=== PATIENT | male | born 1955 | race Caucasian/White ===

== ENCOUNTER 2019-09-10 20:46 | Day surgery (SDC) | payer SELFPAY ==
--- NOTE | ~2019-09-10 | XR_ITS ---
EXAMINATION: XR surgery orthopedic DATE: 09/11/2019 12:09 INDICATION: Right ankle fracture TECHNIQUE: 7 fluoroscopic spot images of the right ankle were obtained during procedure performed by Dr. Soliman. Radiologist was not present for the imaging or procedure. The amount of fluoroscopy t ryne used during this procedure was 2.9 minutes. COMPARISON: None. FINDINGS: Images demonstrate open reduction and internal fixation of the medial and lateral malleoli fractures at the right ankle. The lateral malleolar fractures fixed with an interfragmentary screw and lateral plate and screws. The medial malleolar fractures fixed with 2 cannulated lag screws with washers. Ali gnment post fixation appears near-anatomic. Alignment post fixation appears near-anatomic with a vidhi ruent ankle mortise. Joint spaces are relatively preserved. Expected small amount of gas in the soft tissues. Skin josh along the lateral side of the ankle. IMPRESSION: 1. Near-anatomic alignment post reduction and internal fixation of a right ankle bimalleolar fracture . Reviewed, dictated and finalized at location A. MOBILE LOCATOR IMPRESSION: 1. Near-anatomic alignment post reduction and internal fixation of a right ankl e bimalleolar fracture.
--- NOTE | ~2019-09-10 | XR_ITS ---
EXAMINATION: XR ankle RT min 3V INDICATION: Right ankle pain, initial encounter TECHNIQUE: Two views of the right ankle are obtained on three radiographs. COMPARISON: None available FINDINGS: There is an acute, traumatic, oblique fracture of the distal tibia which extends to the tib ial plafond. The talus and distal fracture fragment are laterally subluxed 2.8 cm with respect to the distal tibia. There is a transverse fracture of the medial malleolus. Soft tissue swelling surrounds the fractures. Dorsal and plantar calcaneal enthesophytes are noted. IMPRESSION: 1. Bimalleolar fracture dislocation of the ankle. Reviewed, dictated and finalized at location A. [employer]
--- NOTE | ~2019-09-10 | XR_ITS ---
EXAMINATION: XR ankle RT 2V INDICATION: Splinting and reduction of ankle fracture TECHNIQUE: Two views of the right ankle are obtained. COMPARISON: 2110 hours FINDINGS: The previously described ankle fractures have been nearly completely reduced. The lateral s ubluxation of the talus and distal fibular fracture fragment have been reduced to less than 1 cm. The re is also near complete reduction of the medial malleolar fracture. A splint has been applied. IMPRESSION: 1. Partially reduced and splinted bimalleolar ankle fracture. Reviewed, dictated and finalized at location A. [employer]
[2019-09-10 20:46] VITALS: BP 108/74; PULSE 74; RESP 20; TEMP 37.1; O2SAT 98
--- NOTE | 2019-09-10 20:59 | ED.FALL ---
HPI - Fall General Chief Complaint: Fall Stated Complaint: open r ankle fracture Time Seen by Provider: 09/10/19 20:59 Source: patient Mode of arrival: EMS Limitations: no limitations History of Present Illness HPI Narrative: A 63 y/o male presents to the ED, via EMS, with c/o right ankle pain. Pt states he was cooking dinner this evening when the smoke detector went off and he slipped and fell in the kitchen. Pt notes that he had a glass of bourbon before this occurred. Pt was unable to get up afterwards. Pt recently saw his PCP for a right knee strain. He denies a HI, neck pain, numbness/tingling, and being on a blood thinner. Fall from: standing Place fall occurred: home Location of injury - extremities: Right: ankle Related Data Home Medications Medication Instructions Recorded Confirmed aspirin 81 mg tablet,delayed 81 mg PO DAILY 08/09/19 release atorvastatin 20 mg tablet 20 mg PO DAILY 08/09/19 coenzyme Q10 10 mg capsule 10 mg PO DAILY cap 08/09/19 lisinopril 10 mg tablet 10 mg PO DAILY 08/09/19 multivitamin 1 tablet PO DAILY 08/09/19 omega-3 fatty acids 1,000 mg 1,000 mg PO DAILY 08/09/19 capsule Allergies Allergy/AdvReac Type Severity Reaction Status Date / Time No Known Allergies Allergy Verified 09/09/19 10:03 Review of Systems Review of Systems: All systems reviewed & are unremarkable except as noted in HPI and below Constitutional: Comments: Reports: a fall Musculoskeletal: Comments: Reports: right ankle pain; Denies: neck pain Neurologic: Comments: Denies: HI, numbness/tingling PMFSH Past Medical History Medical History Dry eyes HLD (hyperlipidemia) HTN (hypertension) Right scapula fracture Surgical History Surgical History History of tonsillectomy Social History Social History Smoking status: Former smoker Smoking end date: 07/28/87 Alcohol intake: current Comments PCP: Dr. Blackman Exam Narrative: Exam Narrative: GENERAL: Well-appearing, well-nourished, and in no acute distress. HEAD: Normocephalic, atraumatic EYES: PERRLA and EOMI, conjunctiva clear without discharge THROAT:Mucous membranes moist, Oropharynx normal without erythema, exudate, peritonsillar swelling or fluctuance NECK: Supple, without lymphadenopathy or mass, no midline tenderness RESPIRATORY: No respiratory distress, Airway patent, Respirations non-labored, Clear to auscultation without rales, rhonchi or wheeze HEART: Regular rate and rhythm. No murmur heard. Normal peripheral pulses. ABDOMEN: Soft, nontender, nondistended, normal active bowel sounds. No masses. No rebound or guarding, No organomegaly. NEURO: Alert and oriented x3. CN 2-12 grossly intact. No focal deficits. PSYCH: Normal mood and affect. Skin: Other: small puncture wound proximal to medial malleolus , oozing bright red blood. Extrem: Right lower extremity: normal capillary refill and ankle Details: abnormal to inspection Details: obviously dislocated (tenting of skin at medial ankle), tenderness Location: of the lateral malleolus and of the medial malleolus, swelling Details: diffusely and abnormal ROM Details: pain with passive ROM (right ankle) Other: right ankle deformity. able to move toes distally . Good DP, PT pulses Course Reevaluation(s) Reevaluation #1: Nursing staff performed crutch training and patient's states she does not feel comfortable with discharging patient tonight. He states he have a lot steps to get in house and she is afraid patient will fall if discharged home. Date: 09/10/19 Time: 23:10 Consultations Consultation #1: I discussed with Dr. lipscomb about patient's injury and xray. He states patient can be discharged home to follow in office. He states patient does not need to be continued on antibiotics for open fracture. Date: 09/10/19 Time: 21
[2019-09-10] MEDS: ONDANSETRON INJ 4 MG/2 ML VIAL IV PUSH (21:13)
[2019-09-10] MEDS: LACTATED RINGERS 1,000 ML 999 ML IV CONT (21:13)
[2019-09-10] MEDS: HYDROMORPHONE HCL 1 MG/ML INJ IV PUSH (21:13)
[2019-09-10] MEDS: TETANUS,DIPHTHERIA,AC PERTUSSIS ADULT 0.5 ML (ADACEL) IM (22:54)
[2019-09-10 23:29] VITALS: BP 126/79; PULSE 74; RESP 18; O2SAT 98
[2019-09-11] VITALS (13 sets, daily range): BP systolic 124–176; BP diastolic 64–107; PULSE 71–97; RESP 12–20; TEMP 36.3–36.7; O2SAT 92–100; BMI 34.8
--- NOTE | 2019-09-11 00:52 | ADMGEN ---
This patient, Toro Vinson, was admitted to 3 [facility] Surg Room 314-01 at 0035. Patient/family oriented to hospital policies and general routines including ID bracelet, bed and alarms, visiting hours, pain management, procedures, bathroom and other care routines, personal items, smoking policy, room service/diet, and visiting hours. Valuables list has been completed. Information on how to activate the Rapid Response Team has been discussed. Patient/Family are encouraged to report perceived risks to care and to ask questions if they do not understand what they are told or what they should do.
[2019-09-11 06:23] LABS: Basophils Percent Auto 0.2 % (0.2-1.2); Eosinophils Absolute Auto 0.2 K/mm3 (0-0.3); Eosinophils Percent Auto 2.1 % (0-4.4); Hematocrit 40.4 % (42.0-52.0); Hemoglobin 13.4 g/dL (14.0-18.0); Immature Granulocyte Absolute 0.03 K/mm3 (0.00-0.031); Immature Granulocyte Percent A 0.3 % (0-0.5); Lymphocytes Absolute Auto 1.62 K/mm3 (0.9-3.2); Lymphocytes Percent Auto 18.6 % (18.3-44.2); Mean Corpuscular HGB Conc 33.2 g/dl (32-36); Mean Corpuscular Hemoglobin 30.2 pg (26-34); Mean Platelet Volume 9.7 fl (7.4-10.4); Monocytes Absolute Auto 1.2 K/mm3 (0.1-0.6); Monocytes Percent Auto 13.5 % (2.6-8.5); Neutrophils Absolute Auto 5.7 K/mm3 (1.3-6.7); Neutrophils Percent Auto 65.3 % (45.5-73.1); Platelet Count Result 189 k/mm3 (150-375); Red Blood Count 4.44 M/mm3 (4.6-6.20); White Blood Count 8.7 K/mm3 (4.5-10.0)
[2019-09-11 06:36] LABS: Blood Urea Nitrogen 18 mg/dL (9-20); Calcium 8.5 mg/dL (8.4-10.2); Carbon Dioxide 22 mmol/L (22-30); Chloride 104 mmol/L (98-107); Estimated CRCL calculation 112 ml/min; Estimated Glomerular Filt Rate > 60; Glucose 93 mg/dL (75-110); Potassium 3.9 mmol/L (3.4-5.0); Sodium 139 mmol/L (137-145)
[2019-09-11] MEDS: MORPHINE SULFATE 4 MG/ML INJ IV PUSH (08:52)
--- NOTE | 2019-09-11 08:59 | WPDANESEPP ---
Anes - Eval Pre Procedure Procedure: orif r ankle fx Date/Time: 09/11/19 08:59 Surgeon: ruel Pre Op Diagnosis: right bimalleolar ankle fracture, Patient Data Age: 63 Gender: M Height: 2.03 m Weight: 143.9 kg Last Vital Signs Temp 36.4 C 09/11/19 05:54 Pulse 84 09/11/19 05:54 Resp 20 09/11/19 05:54 BP 154/99 H 09/11/19 05:54 Pulse Ox 96 09/11/19 05:54 Allergies Allergy/AdvReac Type Severity Reaction Status Date / Time No Known Allergies Allergy Verified 09/09/19 10:03 Home Medications Medication Instructions Recorded Confirmed Type aspirin 81 mg tablet,delayed 81 mg PO DAILY 08/09/19 09/11/19 History release atorvastatin 20 mg tablet 20 mg PO DAILY 08/09/19 09/11/19 History coenzyme Q10 10 mg capsule 10 mg PO DAILY cap 08/09/19 09/11/19 History lisinopril 10 mg tablet 10 mg PO DAILY 08/09/19 09/11/19 History multivitamin 1 tablet PO DAILY 08/09/19 09/11/19 History omega-3 fatty acids 1,000 mg 1,000 mg PO DAILY 08/09/19 09/11/19 History capsule Laboratory Tests 09/11/19 09/11/19 05:50 05:51 WBC 8.7 K/mm3 K/mm3 (4.5-10.0) RBC 4.44 M/mm3 L M/mm3 (4.6-6.20) Hgb 13.4 g/dL L g/dL (14.0-18.0) Hct 40.4 % L % (42.0-52.0) MCV 91.0 fl fl (80-100) MCH 30.2 pg pg (26-34) MCHC 33.2 g/dl g/dl (32-36) RDW 14.0 % % (11.5-14.5) Plt Count 189 k/mm3 k/mm3 (150-375) MPV 9.7 fl fl (7.4-10.4) Immature Gran % (Auto) 0.3 % % (0-0.5) Neut % (Auto) 65.3 % % (45.5-73.1) Lymph % (Auto) 18.6 % % (18.3-44.2) [place] % (Auto) 13.5 % H % (2.6-8.5) Eos % (Auto) 2.1 % % (0-4.4) Baso % (Auto) 0.2 % % (0.2-1.2) Lymph # (Auto) 1.62 K/mm3 K/mm3 (0.9-3.2) [place] # (Auto) 1.2 K/mm3 H K/mm3 (0.1-0.6) Eos # (Auto) 0.2 K/mm3 K/mm3 (0-0.3) Baso # (Auto) 0.0 K/mm3 K/mm3 (0.0-0.1) Abs Immat Gran (auto) 0.03 K/mm3 K/mm3 (0.00-0.031) Absolute Neuts (auto) 5.7 K/mm3 K/mm3 (1.3-6.7) Absolute Nucleated RBC 0.0 K/mm3 K/mm3 (0.0-0.012) Nucleated RBC % 0.0 % % (0.0-0.2) Sodium 139 mmol/L mmol/L (137-145) Potassium 3.9 mmol/L mmol/L (3.4-5.0) Chloride 104 mmol/L mmol/L (98-107) Carbon Dioxide 22 mmol/L mmol/L (22-30) BUN 18 mg/dL mg/dL (9-20) Creatinine 1.00 mg/dL mg/dL (0.7-1.3) Estim Creat Clear Calc 112 ml/min ml/min Estimated GFR > 60 (59 - ) Glucose 93 mg/dL mg/dL (75-110) Calcium 8.5 mg/dL mg/dL (8.4-10.2) Patient hx anesthesia problems: none Family hx anesthesia problems: none [facility] Past Medical History Medical History Dry eyes HLD (hyperlipidemia) HTN (hypertension) Right scapula fracture Surgical History Surgical History History of tonsillectomy Family History Family History (Updated 09/11/19 @ 00:56 by Johana N. Amado, RN) Father Basal cell carcinoma (BCC) in situ of skin Mother Cerebrovascular accident Diabetes mellitus Sibling Melanoma Social History Social History Smoking packs per day: 1 Smoking cigarettes per day: 20.0 Smoking status: Former smoker Tobacco type: cigarettes Smoking end date: 07/28/87 Additional smoking assessment comments: quit in 1983 Alcohol intake: current Drinks per week: 4 Substance use: never Gender identity (if verbalized by the patient): Male Spiritual care concerns: No Agree to blood products: Yes Exam Day of Procedure 09/11/19 08:59
--- NOTE | 2019-09-11 09:45 | PC.NURSE ---
To OR via bed .
--- NOTE | 2019-09-11 09:56 | WPDANESEPPF ---
Anes - Initial Pre Proc Eval Procedure: Operation Date: 09/11/19 10:30 Proposed Procedures p ORIF Ankle Fracture(Right) - Demetrius Soliman MD Date/Time: 09/11/19 09:56 Surgeon: Demetrius Soliman MD Pre Op Diagnosis: right bimalleolar ankle fracture, Patient Data Age: 63 Gender: M Height: 2.03 m Weight: 143.9 kg Last Vital Signs Temp 36.4 C 09/11/19 05:54 Pulse 84 09/11/19 05:54 Resp 20 09/11/19 05:54 BP 154/99 H 09/11/19 05:54 Pulse Ox 96 09/11/19 05:54 Allergies Allergy/AdvReac Type Severity Reaction Status Date / Time No Known Allergies Allergy Verified 09/09/19 10:03 Home Medications Medication Instructions Recorded Confirmed Type aspirin 81 mg tablet,delayed 81 mg PO DAILY 08/09/19 09/11/19 History release atorvastatin 20 mg tablet 20 mg PO DAILY 08/09/19 09/11/19 History coenzyme Q10 10 mg capsule 10 mg PO DAILY cap 08/09/19 09/11/19 History lisinopril 10 mg tablet 10 mg PO DAILY 08/09/19 09/11/19 History multivitamin 1 tablet PO DAILY 08/09/19 09/11/19 History omega-3 fatty acids 1,000 mg 1,000 mg PO DAILY 08/09/19 09/11/19 History capsule Laboratory Tests 09/11/19 09/11/19 05:50 05:51 WBC 8.7 K/mm3 K/mm3 (4.5-10.0) RBC 4.44 M/mm3 L M/mm3 (4.6-6.20) Hgb 13.4 g/dL L g/dL (14.0-18.0) Hct 40.4 % L % (42.0-52.0) MCV 91.0 fl fl (80-100) MCH 30.2 pg pg (26-34) MCHC 33.2 g/dl g/dl (32-36) RDW 14.0 % % (11.5-14.5) Plt Count 189 k/mm3 k/mm3 (150-375) MPV 9.7 fl fl (7.4-10.4) Immature Gran % (Auto) 0.3 % % (0-0.5) Neut % (Auto) 65.3 % % (45.5-73.1) Lymph % (Auto) 18.6 % % (18.3-44.2) [place] % (Auto) 13.5 % H % (2.6-8.5) Eos % (Auto) 2.1 % % (0-4.4) Baso % (Auto) 0.2 % % (0.2-1.2) Lymph # (Auto) 1.62 K/mm3 K/mm3 (0.9-3.2) [place] # (Auto) 1.2 K/mm3 H K/mm3 (0.1-0.6) Eos # (Auto) 0.2 K/mm3 K/mm3 (0-0.3) Baso # (Auto) 0.0 K/mm3 K/mm3 (0.0-0.1) Abs Immat Gran (auto) 0.03 K/mm3 K/mm3 (0.00-0.031) Absolute Neuts (auto) 5.7 K/mm3 K/mm3 (1.3-6.7) Absolute Nucleated RBC 0.0 K/mm3 K/mm3 (0.0-0.012) Nucleated RBC % 0.0 % % (0.0-0.2) Sodium 139 mmol/L mmol/L (137-145) Potassium 3.9 mmol/L mmol/L (3.4-5.0) Chloride 104 mmol/L mmol/L (98-107) Carbon Dioxide 22 mmol/L mmol/L (22-30) BUN 18 mg/dL mg/dL (9-20) Creatinine 1.00 mg/dL mg/dL (0.7-1.3) Estim Creat Clear Calc 112 ml/min ml/min Estimated GFR > 60 (59 - ) Glucose 93 mg/dL mg/dL (75-110) Calcium 8.5 mg/dL mg/dL (8.4-10.2) Patient hx anesthesia problems: none Family hx anesthesia problems: none [facility] Past Medical History Medical History Dry eyes HLD (hyperlipidemia) HTN (hypertension) Right scapula fracture Surgical History Surgical History History of tonsillectomy Family History Family History (Updated 09/11/19 @ 00:56 by Johana Fischer RN) Father Basal cell carcinoma (BCC) in situ of skin Mother Cerebrovascular accident Diabetes mellitus Sibling Melanoma Social History Social History Smoking packs per day: 1 Smoking cigarettes per day: 20.0 Smoking status: Former smoker Tobacco type: cigarettes Smoking end date: 07/28/87 Additional smoking assessment comments: quit in 1983 Alcohol intake: current Drinks per week: 4 Substance use: never Gender identity (if verbalized by the patient): Male Spiritual care concerns: No Agree to blood products: Yes Anes - Eval Final PreProcedure Day of Procedure 09/11/19 09:56 Patient weight: obese Heart: regular rate and rhythm Lungs: clear to auscultation and normal air movement Airway:
--- NOTE | 2019-09-11 09:56 | WPDANESEFPP ---
Anes - Eval Final PreProcedure Day of Procedure 09/11/19 09:56 Patient weight: obese Heart: regular rate and rhythm Lungs: clear to auscultation and normal air movement Airway: Mallampati scale class III Neurological: alert and oriented Last oral intake: >/= 8 hours ASA classification: III Emergent: no Anesthetic plan: proceed Anesthesia type and monitoring: general LMA and standard monitoring Informed Consent: The patient's anesthetic plan and its attendant risks and benefits were discussed with the patient/family/POA. Questions were solicited and answers provided to the satisfaction of the patient/family/POA.
--- NOTE | 2019-09-11 10:25 | PM.CNOR ---
Assessment and Plan Assessment and plan (1) Bimalleolar fracture of right ankle: Qualifiers: Encounter type: initial encounter Fracture type: open Open fracture type: open type I or II Qualified Code(s): S82.841B - Displaced bimalleolar fracture of right lower leg, initial encounter for open fracture type I or II Code(s): S82.841A - Displaced bimalleolar fracture of right lower leg, initial encounter for closed fracture Status: Acute Assessment and Plan: Ankle fracture dislocation with tiny medial open wound. Reduced in the ED. Will benefit from ORIF of the bimalleolar fracture. We discussed the risks, benefits, and alternatives to surgery. History of Present Illness HPI Consult date: 09/11/19 Chief complaint: right bimalleolar ankle fracture, Narrative: Twisted ankle yesterday. Reduced in the ED. Admitted for definitive treatment. No associated symptoms. No LOC. Review of Systems Review of Systems: All systems reviewed & are unremarkable except as noted in HPI and below PMFSH Past Medical History Medical History Dry eyes HLD (hyperlipidemia) HTN (hypertension) Right scapula fracture Surgical History Surgical History History of tonsillectomy Family History Family History Father Basal cell carcinoma (BCC) in situ of skin Mother Cerebrovascular accident Diabetes mellitus Sibling Melanoma Social History Social History Smoking packs per day: 1 Smoking cigarettes per day: 20.0 Smoking status: Former smoker Tobacco type: cigarettes Smoking end date: 07/28/87 Additional smoking assessment comments: quit in 1983 Alcohol intake: current Drinks per week: 4 Substance use: never Gender identity (if verbalized by the patient): Male Spiritual care concerns: No Agree to blood products: Yes Meds Home Medications and Allergies Home Medications Medication Instructions Recorded Confirmed Type aspirin 81 mg tablet,delayed 81 mg PO DAILY 08/09/19 09/11/19 History release atorvastatin 20 mg tablet 20 mg PO DAILY 08/09/19 09/11/19 History coenzyme Q10 10 mg capsule 10 mg PO DAILY cap 08/09/19 09/11/19 History lisinopril 10 mg tablet 10 mg PO DAILY 08/09/19 09/11/19 History multivitamin 1 tablet PO DAILY 08/09/19 09/11/19 History omega-3 fatty acids 1,000 mg 1,000 mg PO DAILY 08/09/19 09/11/19 History capsule Allergies Allergy/AdvReac Type Severity Reaction Status Date / Time No Known Allergies Allergy Verified 09/09/19 10:03 Vital Signs Vital Signs - 24 hr 09/10/19 20:46 09/10/19 23:29 09/11/19 00:19 Temperature 37.1 C 36.7 C Pulse Rate 74 74 71 Respiratory Rate 20 18 16 Blood Pressure 108/74 126/79 124/64 Pulse Oximetry 98 98 99 09/11/19 00:35 09/11/19 05:54 Temperature 36.7 C 36.4 C Pulse Rate 82 84 Respiratory Rate 20 20 Blood Pressure 124/75 154/99 H Pulse Oximetry 96 96 Exam Narrative: Exam Narrative: No distress. Splinted. Tiny open wound medially at fracture site. Knee exam benign. Foot normal/ plantigrade. Const: Orientation/consciousness: patient oriented x3 Neuro: General: patient oriented x3 Extrem: General: capillary refill normal, no calf tenderness bilaterally and no pedal edema Psych: Affect: normal affect Results Labs Result Diagrams: 09/11/19 05:51 09/11/19 05:50 Labs: Abnormal lab results 09/11/19 Range/Units 05:51 RBC 4.44 L (4.6-6.20) M/mm3 Hgb 13.4 L (14.0-18.0) g/dL Hct 40.4 L (42.0-52.0) % [place] % (Auto) 13.5 H (2.6-8.5) % [place] # (Auto) 1.2 H (0.1-0.6) K/mm3 H & H 09/11/19 Range/Units 05:51 Hgb 13.4 L (14.0-18.0) g/dL Hct 40.4 L (42.0-52.0) % All other labs normal.
[2019-09-11] MEDS: ceFAZolin SODIUM 1 GM VIAL 3 GM IV PUSH (10:53)
[2019-09-11] MEDS: KETOROLAC 30 MG/ML VIAL (*BKC) IM (11:53)
[2019-09-11] MEDS: LACTATED RINGERS 1,000 ML 30 ML IV CONT (12:14)
--- NOTE | 2019-09-11 12:21 | PM.PROC ---
Procedure Note - Detailed Date of procedure: 09/11/19 Pre-op diagnosis: right bimalleolar ankle fracture, Post-op diagnosis: same Procedure performed: ORIF bimalleolar ankle fracture, right. Implants: Synthes 1/3 tubular locking plate. 4.0 mm partially threaded cannulated screws (ASNIS), 46mm and 44mm. Anesthesia: GETA Surgeon: Demetrius Soliman MD Estimated blood loss (mL): 20 Drains: No Complications: None Findings: There was a tiny opening proximal to the medial malleolus fracture. Copious irrigation was performed. There was no contamination. Bone quality was excellent. Stable anatomic fixation was obtained. The ankle mortise was stable. Operative Detail: A general anesthetic was administered. The limb was prepped and draped in the usual sterile fashion with a well-padded tourniquet high on the thigh. A bump was placed under the hip. The limb was exsanguinated and the tourniquet inflated to 300 millimeters of mercury during the procedure. A longitudinal incision was created at the distal fibula. Careful dissection was carried down to bone. Perineal nerve branches were protected. The fracture was carefully exposed. Callus and debris was irrigated from the wound. The fracture was brought out to length. Reduction was accomplished with the reduction forceps. An AP lag screw was placed with excellent purchase. The fixation plate was then contoured. Fixation was performed with a combination of cortical and cancellous screws. Two locking screws were used distally. Fluoroscopy was used throughout the procedure to confirm anatomic reduction and appropriate placement of the implants.The medial malleolus was exposed with a longitudinal incision. The fracture was cleared of debris and irrigated. Anatomic reduction was obtained with the reduction tool. Biplanar fluoroscopy was used to assess the fracture reduction and guide placement of the K-wire. Two K-wires were placed parallel across the fracture site. The screw lengths were measured and drilled distally only. The long, partially threaded screws were placed, and the K-wires removed. The tourniquet was released. Meticulous hemostasis was obtained. Wound was closed in layers with 2-0 Vicryl suture 3-0 Monocryl suture and josh. A sterile splint with padding was applied. The patient was extubated and brought to the recovery room in stable condition. There were no complications.
[2019-09-11] MEDS: KETOROLAC 15 MG/ML VIAL (*BKC) IV PUSH ×2 (14:45→22:07)
[2019-09-11] MEDS: lisinopriL 10 MG TABLET PO (17:41)
[2019-09-11] MEDS: ATORVASTATIN 20 MG TABLET PO (17:41)
[2019-09-11] MEDS: DOCUSATE SODIUM 100 MG CAPSULE PO (17:42)
[2019-09-11] MEDS: FAMOTIDINE 20 MG TABLET PO (19:56)
[2019-09-12 02:00] VITALS: BP 148/94; PULSE 71; RESP 18; TEMP 36.4; O2SAT 99
[2019-09-12] MEDS: KETOROLAC 15 MG/ML VIAL (*BKC) IV PUSH ×2 (03:20→08:17)
[2019-09-12 06:00] VITALS: BP 167/97; PULSE 70; RESP 16; TEMP 36.7; O2SAT 100
[2019-09-12] MEDS: FAMOTIDINE 20 MG TABLET PO (08:17)
[2019-09-12] MEDS: lisinopriL 10 MG TABLET PO (08:17)
[2019-09-12] MEDS: DOCUSATE SODIUM 100 MG CAPSULE PO (08:17)
[2019-09-12] MEDS: ATORVASTATIN 20 MG TABLET PO (08:17)
[2019-09-12] MEDS: ASPIRIN 81 MG ENTERIC TABLET PO (08:17)
--- NOTE | 2019-09-12 10:34 | WPDANESPN ---
Anes - Prog Note Post-Op Date/Time: 09/12/19 10:34 Cardiovascular status: normal Respiratory status: normal Airway patency: baseline Mental status: baseline Post-Op hydration status: normal Vital Signs: Last Vital Signs Temp 36.7 C 09/12/19 06:00 Pulse 70 09/12/19 06:00 Resp 16 09/12/19 06:00 BP 167/97 H 09/12/19 06:00 Pulse Ox 100 09/12/19 06:00 I/O: Intake & Output 09/11/19 09/12/19 09/12/19 23:59 07:59 15:59 Intake Total 940 600 120 Output Total 350 1000 Balance 590 -400 120 Laboratory Tests 09/11/19 05:51 09/11/19 05:50 Post-procedural complaints: none Patient Feedback: Patient satisfied with anesthetic care.
--- NOTE | 2019-09-12 12:20 | PM.DS ---
DS: Diagnosis Admitting Diagnosis Admitting Diagnosis: Displaced bimalleolar fracture of right lower leg, initial encounter for open fracture type I or II Discharge Diagnosis (1) Bimalleolar fracture of right ankle: Qualifiers: Encounter type: initial encounter Fracture type: open Open fracture type: open type I or II Qualified Code(s): S82.841B - Displaced bimalleolar fracture of right lower leg, initial encounter for open fracture type I or II Code(s): S82.841A - Displaced bimalleolar fracture of right lower leg, initial encounter for closed fracture Status: Acute (2) Dislocation of ankle, right, open: Code(s): S93.04XA - Dislocation of right ankle joint, initial encounter; S91.001A - Unspecified open wound, right ankle, initial encounter Status: Acute DS: Summary Hospital Course Reason for hospitalization: Ankle fracture dislocation. Hospital Course: ORIF bimalleolar fracture performed. Tolerated surgery well. Status at Discharge Functional status at discharge: uses cane/walker Overall status at discharge: patient is not back to baseline Time Spent with Patient Time attestation: Total time spent providing and/or coordinating discharge services: Discharge Plan Discharge Attending physician on discharge: Demetrius Soliman Discharging Clinician: Demetrius Soliman Patient Disposition: Home, Self-Care Activity: may shower Diet: as tolerated Wound Care Instructions: keep dressing dry Discharge Instructions: Toe touch weight bearing only. Elevate foot. Keep pressure off heal. Patient Instructions: Antibiotic Form Stand Alone Forms: General Discharge Information Follow-up/Referrals: Demetrius Soliman MD [Physician] - Discharge Medications: New oxycodone-acetaminophen 5-325 mg tablet 1 - 2 tablet PO Q4-6H MDD 8 tablets PRN (Reason: pain) Qty: 40 RF: 0 Continued coenzyme Q10 10 mg capsule 10 mg PO DAILY RF: 0 aspirin 81 mg tablet,delayed release (DR/EC) 81 mg PO DAILY RF: 0 atorvastatin [Lipitor] 20 mg tablet 20 mg PO DAILY RF: 0 lisinopril 10 mg tablet 10 mg PO DAILY RF: 0 multivitamin Tablet 1 tablet PO DAILY RF: 0 omega-3 fatty acids [Fish Oil Concentrate] 1,000 mg capsule 1,000 mg PO DAILY RF: 0 Date of admission: 09/10/19 23:34 Primary Care Provider: Jimi Blackman Admitting Provider: Demetrius Soliman Attending physician on admission: Demetrius Soliman Condition: Stable
[2019-09-12] MEDS: ACETAMINOPHEN 500 MG TABLET 1000 MG PO (12:57)
--- NOTE | 2019-09-15 16:32 | PM.DS ---
DS: Diagnosis Admitting Diagnosis Admitting Diagnosis: Displaced bimalleolar fracture of right lower leg, initial encounter for open fracture type I or II Discharge Diagnosis (1) Bimalleolar fracture of right ankle: Qualifiers: Encounter type: initial encounter Fracture type: open Open fracture type: open type I or II Qualified Code(s): S82.841B - Displaced bimalleolar fracture of right lower leg, initial encounter for open fracture type I or II Code(s): S82.841A - Displaced bimalleolar fracture of right lower leg, initial encounter for closed fracture Status: Acute DS: Summary Hospital Course Reason for hospitalization: Open reduction and internal fixation of the bimalleolar ankle fracture. Hospital Course: Tolerated surgery well. Progressed appropriately with therapy. Status at Discharge Functional status at discharge: uses cane/walker Time Spent with Patient Time attestation: Total time spent providing and/or coordinating discharge services: Exam Const: General: no acute distress Resp: Effort & Inspection: normal respiratory effort Neuro: Motor exam (neuro): 5/5 motor strength present throughout Sensory Exam: normal sensation Extrem: Other: The splint is intact. Capillary refill brisk. Psych: Mental Status: mental status grossly normal Speech and movement: Normal speech and movement present Discharge Plan Discharge Patient Disposition: Home, Self-Care Discharge Instructions: Toe touch weight bearing only. Elevate foot. Keep pressure off heal. Patient Instructions: Pain Management (DC), ORIF of an Ankle Fracture (DC) Stand Alone Forms: General Discharge Information Follow-up/Referrals: Demetrius Soliman MD [Physician] - Discharge Orders: Discharge Order (Routine); Ordered 09/12/19 Ordered By: Demetrius Soliman Discharge Medications: New oxycodone-acetaminophen 5-325 mg tablet 1 - 2 tablet PO Q4-6H MDD 8 tablets PRN (Reason: pain) Qty: 40 RF: 0 Continued coenzyme Q10 10 mg capsule 10 mg PO DAILY RF: 0 aspirin 81 mg tablet,delayed release (DR/EC) 81 mg PO DAILY RF: 0 atorvastatin [Lipitor] 20 mg tablet 20 mg PO DAILY RF: 0 lisinopril 10 mg tablet 10 mg PO DAILY RF: 0 multivitamin Tablet 1 tablet PO DAILY RF: 0 omega-3 fatty acids [Fish Oil Concentrate] 1,000 mg capsule 1,000 mg PO DAILY RF: 0 Primary Care Provider: Jimi Blackman Discharge Date/Time: 09/12/19 13:30 Attending physician on admission: Demetrius Soliman
== END 2019-09-12 13:30 | disposition home or self-care (01) ==
LOC: ANHED 23:31 → ANH3MEDSUR 23:55 → ANHSURGERY 09-13 09:11 → ANH3MEDSUR 09-13 09:12
PROVIDERS: Emergency Provider General Practice; PCP Family Medicine; Visit Provider Orthopaedic Surgery
PROC: (CPT 27814; principal; 2019-09-11 10:30)
DX: S82.841B Displaced bimalleolar fracture of right lower leg, initial encounter for open fracture type I or II (principal); W01.0XXA Fall on same level from slipping, tripping and stumbling without subsequent striking against object, initial encounter; I10 Essential (primary) hypertension; E78.5 Hyperlipidemia, unspecified; Z79.82 Long term (current) use of aspirin; Z87.891 Personal history of nicotine dependence
CPT/HCPCS: 27814; 36415; 73600; 73610; 80048; 85025; 90471; 90715; 96365; 96375; 97110; 97116; 97161; 97530; 99285; A9270; C1713; J0131; J0690; J1100; J1170; J1885; J2250; J2270; J2405; J2704; J3010; J7120

== ENCOUNTER 2019-09-23 07:03 | Emergency (ER) | payer SELFPAY ==
--- NOTE | ~2019-09-23 | CT_ITS ---
EXAMINATION: CT abdomen pelvis wo con DATE: 09/23/2019 07:49 INDICATION: Right lower quadrant abdominal pain. TECHNIQUE: Computed tomography (CT) of the abdomen and pelvis was performed without intravenous contr ast. Automated exposure control and iterative reconstruction technique were employed. The dose-length product was 1567.80 mGy-cm. COMPARISON: None. FINDINGS: The visualized portions of the lung bases demonstrate mild atelectasis. No pleural effusion . The heart size is normal. No pericardial effusion. The liver, gallbladder, spleen, pancreas, adrena l glands, and kidneys are normal. There is no urolithiasis. There is diffuse bladder wall thickening, likely secondary to chronic outlet obstruction from the mildly enlarged prostate. There is diverticu losis of the colon. There are no dilated loops of bowel. There is wall thickening of ascending colon with diverticula and surrounding fat stranding. The appendix is normal. There are no pathologically e nlarged lymph nodes. There is no free intraperitoneal fluid. There is a small left inguinal hernia co ntaining fat. There is mild thoracolumbar spondylosis. IMPRESSION: 1. Acute diverticulitis of ascending colon. No perforation or abscess. Reviewed, dictated and finalized at location A. H MACHINE OPERATOR
[2019-09-23 07:16] VITALS: BP 128/98; PULSE 87; RESP 18; TEMP 36.5; O2SAT 99
--- NOTE | 2019-09-23 07:19 | ED.ABDPAIN ---
HPI - Abdominal Pain General Chief Complaint: Abdominal Pain Stated Complaint: lower abd pain Time Seen by Provider: 09/23/19 07:08 History of Present Illness HPI narrative: RLQ pain since early this morning. 12/04 at its worse. Took norco at home, now 08/06. No radiation. No additional symptoms. He reports urinating 3 times during the night, which is unusual for him. No prior abdominal surgeries. Related Data Home Medications Medication Instructions Recorded Confirmed aspirin 81 mg tablet,delayed 81 mg PO DAILY 08/09/19 09/11/19 release atorvastatin 20 mg tablet 20 mg PO DAILY 08/09/19 09/11/19 coenzyme Q10 10 mg capsule 10 mg PO DAILY cap 08/09/19 09/11/19 lisinopril 10 mg tablet 10 mg PO DAILY 08/09/19 09/11/19 multivitamin 1 tablet PO DAILY 08/09/19 09/11/19 omega-3 fatty acids 1,000 mg 1,000 mg PO DAILY 08/09/19 09/11/19 capsule Allergies Allergy/AdvReac Type Severity Reaction Status Date / Time No Known Allergies Allergy Verified 09/09/19 10:03 Review of Systems Review of Systems: All systems reviewed & are unremarkable except as noted in HPI and below Constitutional: Constitutional: Denies chills and Denies fever(s) Cardiovascular: Cardiovascular: Denies chest pain Respiratory: Respiratory: Denies dyspnea Gastrointestinal: Gastrointestinal: Reports abdominal pain, Denies constipation, Denies diarrhea, Denies nausea and Denies vomiting Genitourinary: Genitourinary: Denies hematuria and Denies dysuria Musculoskeletal: Musculoskeletal: Denies back pain Neurologic: Denies numbness and Denies weakness [facility] Past Medical History Medical History (Updated 09/23/19 @ 09:37 by Lance Marquez MD) Dry eyes HLD (hyperlipidemia) HTN (hypertension) Right scapula fracture Surgical History Surgical History (Updated 09/13/19 @ 08:53 by Jimi Blackman MD) History of tonsillectomy Status post open reduction with internal fixation (ORIF) of fracture of ankle Social History Social History Smoking packs per day: 1 Smoking cigarettes per day: 20.0 Smoking status: Former smoker Tobacco type: cigarettes Smoking end date: 07/28/87 Additional smoking assessment comments: quit in 1983 Alcohol intake: current Drinks per week: 4 Substance use: never Gender identity (if verbalized by the patient): Male Spiritual care concerns: No Agree to blood products: Yes Exam Const: General: healthy appearing, no acute distress and alert Orientation/consciousness: patient oriented x3 HENMT: Head: normal to inspection Resp: Effort & Inspection: normal respiratory effort Auscultation: clear to auscultation bilaterally Cardio: Rate: regular rate Rhythm: regular rhythm GI: Inspection: non-distended GI Palp: Yes Soft to palpation, Yes Tenderness to palpation present (GI) (RLQ), No Guarding due to palpation present (GI) and No Rebound tenderness present : General: Yes no CVA tenderness Skin: General skin exam: normal color Neuro: General: patient oriented x3, moves all extremities and no focal motor deficits Speech: normal speech Extrem: General: normal to inspection Course Vital Signs Vital signs: Vital Signs Temperature 36.5 C 09/23/19 07:16 Pulse Rate 87 09/23/19 07:16 Respiratory Rate 18 09/23/19 07:16 Blood Pressure 128/98 H 09/23/19 07:16 Pulse Oximetry 99 09/23/19 07:16 Temperature 36.5 C 09/23/19 07:16 Pulse Rate 72 09/23/19 10:05 Respiratory Rate 16 09/23/19 10:05 Blood Pressure 128/70 09/23/19 10:05 Pulse Oximetry 99 09/23/19 10:05 MDM - Abdominal Pain Differential Diagnosis Differential diagnosis: Likely acute appendicitis, calculus of kidney, constipation, diverticulitis and pancreatitis Medical Records Attestation: I reviewed the patient's medical records. Lab Data Attestation: I reviewed the patient's lab results. Result diagrams: 09/23/19 07:33
[2019-09-23 07:43] LABS: Basophils Absolute Auto 0.1 K/mm3 (0.0-0.1); Basophils Percent Auto 0.5 % (0.2-1.2); Eosinophils Absolute Auto 0.2 K/mm3 (0-0.3); Eosinophils Percent Auto 1.5 % (0-4.4); Hematocrit 45.5 % (42.0-52.0); Hemoglobin 14.7 g/dL (14.0-18.0); Immature Granulocyte Absolute 0.07 K/mm3 (0.00-0.031); Immature Granulocyte Percent A 0.5 % (0-0.5); Lymphocytes Absolute Auto 2.09 K/mm3 (0.9-3.2); Lymphocytes Percent Auto 15.8 % (18.3-44.2); Mean Corpuscular HGB Conc 32.3 g/dl (32-36); Mean Corpuscular Hemoglobin 29.4 pg (26-34); Mean Platelet Volume 9.8 fl (7.4-10.4); Monocytes Absolute Auto 1.7 K/mm3 (0.1-0.6); Monocytes Percent Auto 12.7 % (2.6-8.5); Neutrophils Absolute Auto 9.1 K/mm3 (1.3-6.7); Platelet Count Result 386 k/mm3 (150-375); Red Cell Distribution Width 13.2 % (11.5-14.5); White Blood Count 13.2 K/mm3 (4.5-10.0)
[2019-09-23 08:37] LABS: Alanine Aminotransferase 34 U/L (4-50); Albumin Level 4.1 g/dL (3.5-5.1); Alkaline Phosphatase 99 U/L (38-126); Aspartate Amino Transferase 25 U/L (17-59); Bilirubin,Total 0.6 mg/dL (0.2-1.3); Blood Urea Nitrogen 14 mg/dL (9-20); Calcium 9.3 mg/dL (8.4-10.2); Carbon Dioxide 26 mmol/L (22-30); Chloride 101 mmol/L (98-107); Estimated CRCL calculation 109 ml/min; Estimated Glomerular Filt Rate > 60; Glucose 111 mg/dL (75-110); Lipase 108 U/L (23-300); Potassium 4.5 mmol/L (3.4-5.0); Sodium 139 mmol/L (137-145)
[2019-09-23] MEDS: CIPROFLOXACIN 500 MG TAB PO (08:47)
[2019-09-23] MEDS: metroNIDAZOLE 250 MG TABLET 500 MG PO (08:48)
[2019-09-23 09:51] LABS: Add Urine Microscopic? NO; Appearance Urine Clear (Clear); Bilirubin Urine Negative (Negative); Blood Urine Negative (Negative); Color Urine Yellow (Yellow); Glucose Urine UA Negative (Negative); Ketones Urine Negative (Negative); Leukocyte Esterase Ur Negative LEU/UL (Negative); Nitrate Urine Negative (Negative); Protein Urine Negative (Negative); Specific Grav Ur 1.023 (1.001-1.035); Urobilinogen Urine Negative mg/dL (<2.0)
[2019-09-23 10:05] VITALS: BP 128/70; PULSE 72; RESP 16; O2SAT 99
== END 2019-09-23 10:08 | disposition home or self-care (01) ==
PROVIDERS: Emergency Provider Emergency Medicine; PCP Family Medicine
DX: K57.92 Diverticulitis of intestine, part unspecified, without perforation or abscess without bleeding (principal); I10 Essential (primary) hypertension; Z79.82 Long term (current) use of aspirin; Z87.891 Personal history of nicotine dependence
CPT/HCPCS: 36415; 74176; 80053; 81003; 83690; 85025; 99284; A9270

== ENCOUNTER 2020-01-05 12:31 | Outpatient (CLI) | payer SELFPAY ==
--- NOTE | ~2020-01-05 | MR_ITS ---
EXAMINATION: MR knee RT wo con DATE: 01/05/2020 13:36 INDICATION: Right knee pain and swelling. TECHNIQUE: Magnetic resonance imaging (MRI) of the right knee was performed without intravenous contr ast. Sequences included axial PD-weighted FS FSE, coronal PD-weighted FSE and PD-weighted FS FSE, sag ittal PD-weighted FSE, and sagittal T2-weighted FS FSE. COMPARISON: Right knee radiographs 12/01/2019 FINDINGS: Medial compartment: There is a radial tear of posterior horn of medial meniscus. There is shallow partial-thickness carti leni loss of tibial condyle. There is a subchondral insufficiency fracture of tibial condyle medially with subchondral sclerosis and surrounding bone marrow edema. There is full-thickness cartilage loss of femoral condyle involving the central articular surface with moderate subchondral edema-like niki ow signal intensity. Marginal osteophytes are noted. Lateral compartment: There is a radial tear of body of lateral meniscus. There is cartilage surface irregularity of tibial condyle. Femoral cartilage is normal. Patellofemoral compartment: There is full-thickness cartilage loss of patellar medial facet, median ridge, and lateral facet with mild subchondral edema-like marrow signal intensity. There is deep cartilage fissuring of central tr ochlea. Marginal osteophytes are noted. Ligaments and tendons: Anterior and posterior cruciate ligaments are normal. There are changes of prior sprains of medial co llateral ligament and fibular collateral ligament characterized by thickening and increased signal in tensity proximally. There is mild patellar tendinopathy. Fluid: There is a large knee joint effusion with synovitis. There is trace fluid in a Soto's cyst. There is severe prepatellar and superficial infrapatellar bursitis. IMPRESSION: 1. Severe chondrosis of medial and patellofemoral compartments and mild chondrosis of lateral compart ment. 2. Subchondral insufficiency fracture of medial tibial condyle. 3. Tears of medial and lateral menisci. 4. Large knee joint effusion with synovitis. 5. Severe prepatellar and superficial infrapatellar bursitis. Reviewed, dictated and finalized at location A. IMPRESSION: 1. Severe chondrosis of medial and patellofemoral compartments and mild chondro sis of lateral compartment. 2. Subchondral insufficiency fracture of medial tibial condyle. 3. Tears of medial and lateral menisci. 4. Large knee joint effusion with synovitis. 5. Severe prepatellar and superficial infrapatellar bursitis.
--- NOTE | ~2020-01-05 | XR_ITS ---
EXAMINATION: XR ankle RT min 3V DATE: 01/05/2020 13:47 INDICATION: Other specified postprocedural states. TECHNIQUE: 4 views of right ankle were obtained. COMPARISON: Right ankle radiographs 11/08/2019, 09/10/2019 FINDINGS: There is a transverse fracture of medial malleolus in near-anatomic alignment with internal fixation with 2 lag screws with washers. Periosteal new bone formation is noted. There is an oblique fracture of distal fibula in near-anatomic alignment status post open reduction internal fixation wi th semitubular plate, multiple screws, and single interfragmentary screw. The talar dome is normal. 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 There is enthesophyte at the posterior and plantar aspects of ca lcaneal tuberosity. Ankle soft tissue swelling is noted. IMPRESSION: 1. Healing bimalleolar ankle fracture. Reviewed, dictated and finalized at location A.
== END 2020-01-05 12:32 | disposition home or self-care (01) ==
PROVIDERS: PCP Family Medicine; Visit Provider Orthopaedic Surgery
DX: M23.305 Other meniscus derangements, unspecified medial meniscus, unspecified knee (principal); Z98.890 Other specified postprocedural states; Z87.81 Personal history of (healed) traumatic fracture; M22.2X1 Patellofemoral disorders, right knee; M84.461A Pathological fracture, right tibia, initial encounter for fracture; S83.281A Other tear of lateral meniscus, current injury, right knee, initial encounter; S83.241A Other tear of medial meniscus, current injury, right knee, initial encounter; M25.461 Effusion, right knee; M65.861 Other synovitis and tenosynovitis, right lower leg; M71.561 Other bursitis, not elsewhere classified, right knee
CPT/HCPCS: 73610; 73721

== ENCOUNTER 2024-05-09 10:02 | Emergency (ER) | payer MEDICARE, SELFPAY ==
[2024-05-09 10:09] VITALS: BP 164/93; PULSE 69; RESP 16; TEMP 36.3; O2SAT 99
--- NOTE | 2024-05-09 10:30 | ED_ITS ---
HPI - Skin/Abscess/Foreign Bdy General Chief complaint: Skin/Abscess/Foreign Body Stated complaint: Infected Toe Right Foot Source: patient Mode of arrival: ambulatory Limitations: no limitations History of Present Illness HPI narrative: 68 y/o male with hx HTN presented for c/o right great toe ingrown nail with swelling and drainage worsening over the past few days. Swelling now extends over the ankle. Rates pain 2/10, but reports slightly decreased sensation to the toe. Hx right ankle surgery [address]. Denies n/v/d/f/c. Pt is ambulatory. Related Data Home Medications Medication Instructions Recorded Confirmed aspirin 81 mg tablet,delayed 81 mg PO DAILY 08/09/19 05/09/24 release multivitamin 1 tablet PO DAILY 08/09/19 05/09/24 coenzyme Q10 200 mg capsule 200 mg PO DAILY 10/17/21 05/09/24 omega-3 fatty acids 1,000 mg 1,000 mg PO DAILY 10/17/21 05/09/24 capsule (Fish Oil Concentrate) potassium gluconate 595 mg (99 mg) 595 mg PO DAILY 10/17/21 05/09/24 tablet Allergies Allergy/AdvReac Type Severity Reaction Status Date / Time No Known Allergies Allergy Verified 05/09/24 10:18 Review of Systems Review of Systems: CONSTITUTIONAL: Denies body aches, fever, chills, or sweats. CARDIOVASCULAR: Denies chest pain, palpitations, or edema. RESPIRATORY: Denies cough or dyspnea. GASTROINTESTINAL: Denies abdominal pain, nausea, vomiting, or diarrhea. SKIN: right great toenail swelling drainage; foot swelling MUSCULOSKELETAL: Denies back pain, joint pain, or myalgia. NEUROLOGIC: Denies headache, numbness, tingling, or weakness. 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 COVID-19 Degenerative tear of lateral meniscus Dislocation of ankle, right, open Dry eyes HLD (hyperlipidemia) HTN (hypertension) Right scapula fracture Surgical History Surgical History History of tonsillectomy Status post open reduction with internal fixation (ORIF) of fracture of ankle Family History Family History Father Basal cell carcinoma (BCC) in situ of skin Mother Cerebrovascular accident Diabetes mellitus Sibling Melanoma Social History Social History Smoking packs per day: 1 Smoking cigarettes per day: 20.0 Smoking status: Never smoker Tobacco type: cigarettes Smoking end date: 07/28/87 Additional smoking assessment comments: quit in 1983 Alcohol intake: current Drinks per week: 4 Substance use: never Lack of Transportation: No Lack of Food: Never True Current Housing: I Have Housing Concerned About Future Housing: No Difficulty Paying Gas/Electric Bills: No Difficulty Paying for Meds: No Currently Unemployed: No Education: Bachelor's Degree Difficulty w/ Childcare or Family Care: No Gender identity (if verbalized by the patient): Male Spiritual care concerns: No Agree to blood products: Yes Comments At time of signature, I have reviewed and agree with nursing past medical, surgical, social and family history unless otherwise noted. Please see nursing chart for further information. There is no relevant family history pertinent to the presenting complaint Exam Narrative: GENERAL: Well-appearing ENT: Mucous membranes moist. Oropharynx without edema, erythema or lesions. CHEST: Clear to auscultation. HEART: Regular rate and rhythm. SKIN: Warm, dry. Right great toe with ingrown toe nail, purulent drainage significant swelling and erythema to the toe extending beyond ankle. NEURO: Alert and oriented x3. Course Course Emergency Course: Patient is aware of diagnosis, understands and agrees to treatment plan. Anticipatory guidance given. Patient agrees to follow-up as directed and is aware of reasons to seek care at the emergency department. Portions of this record may have been created with voice recognition software Level of Care: Express Care Visit Vital Signs Vital signs: Vital Signs Temperature 97.3 F L 05/09/24 10:09 Pulse Rate 69 05/09/24 10:09 Respiratory Rate 16 05/09/24 10:09 Blood Pressure 164/93 H 05/09/24 10:09 Pulse Oximetry 99 05/09/24 10:09 Temperature 97.3 F L 05/09/24 10:09 Pulse Rate 69 05/09/24 10:09 Respiratory Rate 16 05/09/24 10:09 Blood Pressure 164/93 H 05/09/24 10:09 Pulse Oximetry 99 05/09/24 10:09 Reviewed Transfer Transfered to: [facility] Transportation: Other (private vehicle) Transfer rationale: Pt is agreeable to transfer. Requests transfer to [facility] via private vehicle. Risks of transportation reviewed with pt including injury, worsening of condition and . v/u. will be driving pt; Report called to hospital, spoke with Dr Lovett, accepting physician. Pt is in stable condition at time of transfer. Advised to remain NPO and go directly to the hospital. MDM - Skin/Abscess/Foreign Bdy MDM Narrative Medical decision making narrative: Right great toe ingrown nail with surrounding cellulitis. Advised ER transfer. Spoke with Dr Lovett, who advised option of Keflex QID and podistrist f/u. Informed pt this option, they elect to go to the ER at this time for further evaluation. Differential Diagnosis Differential diagnosis: Likely abscess of skin or subcutaneous tissue, urticaria, herpes zoster, cellulitis, contact dermatitis and other (ingrown nail) Discharge Plan Discharge Clinical Impression: Ingrown toenail with infection Patient Disposition: Acute Care Hospital Condition: Stable Prescriptions: No Action aspirin 81 mg tablet,delayed release (DR/EC) 81 mg PO DAILY multivitamin Tablet 1 tablet PO DAILY potassium gluconate 595 mg (99 mg) tablet 595 mg PO DAILY coenzyme Q10 200 mg capsule 200 mg PO DAILY omega-3 fatty acids [Fish Oil Concentrate] 1,000 mg capsule 1,000 mg PO DAILY Rx Instructions: pt taking 3750 rosuvastatin [Crestor] 20 mg tablet 20 mg PO DAILY Qty: 90 1RF hydrochlorothiazide 12.5 mg tablet 12.5 mg PO DAILY Qty: 90 1RF lisinopril 20 mg tablet 20 mg PO DAILY Qty: 90 1RF Follow-up/Referrals: Jimi Blackman MD [Primary Care Provider] - Time of Disposition: 10:58
== END 2024-05-09 10:50 | disposition short-term general hospital (02) ==
PROVIDERS: Emergency Provider Nurse Practitioner Family; PCP Family Medicine
DX: L60.0 Ingrowing nail (principal); Z87.891 Personal history of nicotine dependence; E78.5 Hyperlipidemia, unspecified; I10 Essential (primary) hypertension; Z86.16 Personal history of COVID-19; Z79.82 Long term (current) use of aspirin
CPT/HCPCS: 99212; 99213; G0463

== ENCOUNTER 2024-05-09 11:27 | Emergency (ER) | payer MEDICARE, SELFPAY ==
[2024-05-09 11:30] VITALS: BP 145/91; PULSE 63; RESP 15; TEMP 36.5; O2SAT 99
--- NOTE | 2024-05-09 11:42 | ED.GENADULT ---
HPI - General Adult General Chief complaint: Skin/Abscess/Foreign Body Stated complaint: from UC, infected R great toe Time Seen by Provider: 05/09/24 11:42 Source: patient and family Mode of arrival: ambulatory Limitations: no limitations History of Present Illness HPI narrative: 68 years old white male came to the ED because of pain and redness of the right big toe started 7 days ago. He denies any fever, chills, nausea, vomiting, trauma. History of onychomycosis. and ingrown toenail Patient is not diabetic Related Data Home Medications Medication Instructions Recorded Confirmed aspirin 81 mg tablet,delayed 81 mg PO DAILY 08/09/19 05/09/24 release multivitamin 1 tablet PO DAILY 08/09/19 05/09/24 coenzyme Q10 200 mg capsule 200 mg PO DAILY 10/17/21 05/09/24 omega-3 fatty acids 1,000 mg 1,000 mg PO DAILY 10/17/21 05/09/24 capsule (Fish Oil Concentrate) potassium gluconate 595 mg (99 mg) 595 mg PO DAILY 10/17/21 05/09/24 tablet Allergies Allergy/AdvReac Type Severity Reaction Status Date / Time No Known Allergies Allergy Verified 05/09/24 11:28 Review of Systems Review of Systems: All systems reviewed & are unremarkable except as noted in HPI and below PMFSH Past Medical History Medical History Bimalleolar fracture of right ankle 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 COVID-19 Degenerative tear of lateral meniscus Dislocation of ankle, right, open Dry eyes HLD (hyperlipidemia) HTN (hypertension) Right scapula fracture Surgical History Surgical History History of tonsillectomy Status post open reduction with internal fixation (ORIF) of fracture of ankle Family History Family History Father Basal cell carcinoma (BCC) in situ of skin Mother Cerebrovascular accident Diabetes mellitus Sibling Melanoma Social History Social History Smoking packs per day: 1 Smoking cigarettes per day: 20.0 Smoking status: Never smoker Tobacco type: cigarettes Smoking end date: 07/28/87 Additional smoking assessment comments: quit in 1983 Alcohol intake: current Drinks per week: 4 Substance use: never Lack of Transportation: No Lack of Food: Never True Current Housing: I Have Housing Concerned About Future Housing: No Difficulty Paying Gas/Electric Bills: No Difficulty Paying for Meds: No Currently Unemployed: No Education: Bachelor's Degree Difficulty w/ Childcare or Family Care: No Gender identity (if verbalized by the patient): Male Spiritual care concerns: No Agree to blood products: Yes Exam Narrative: General appearance: Well-developed, well-nourished Skin: Normal color Head: Normocephalic, nontraumatic Chest and respiratory: Airway patent, no respiratory distress, no accessory muscle use Heart: Regular rate/rhythm Vascular: Normal peripheral pulses, normal capillary refill. Musculoskeletal: right big toe examination showed slight erythema medially, no discharge, slightly tender, thick toenails secondary to onychomycosis Neurologic: Alert and oriented ?3, Course Vital Signs Vital signs: Vital Signs Temperature 36.5 C 05/09/24 11:30 Pulse Rate 63 05/09/24 11:30 Respiratory Rate 15 05/09/24 11:30 Blood Pressure 145/91 H 05/09/24 11:30 Pulse Oximetry 99 05/09/24 11:30 Oxygen Delivery Room Air 05/09/24 11:30 Temperature 36.5 C 05/09/24 11:30 Pulse Rate 63 05/09/24 11:30 Respiratory Rate 15 10
[2024-05-09 12:21] VITALS: BP 143/66; PULSE 78; RESP 20; O2SAT 98
== END 2024-05-09 12:22 | disposition home or self-care (01) ==
PROVIDERS: Emergency Provider Emergency Medicine; PCP Family Medicine
DX: B35.1 Tinea unguium (principal); L60.0 Ingrowing nail; I10 Essential (primary) hypertension; E78.5 Hyperlipidemia, unspecified; Z86.16 Personal history of COVID-19; Z87.891 Personal history of nicotine dependence; Z79.82 Long term (current) use of aspirin; Z79.899 Other long term (current) drug therapy
CPT/HCPCS: 99283

== ENCOUNTER 2024-05-25 09:17 | Outpatient (CLI) | payer MEDICARE, SELFPAY ==
[2024-05-25 10:24] LABS: Alanine Aminotransferase 55 U/L (6-50); Aspartate Amino Transferase 52 U/L (17-59)
== END 2024-05-25 09:18 | disposition home or self-care (01) ==
LOC: ANHLAB 09:20
PROVIDERS: PCP Family Medicine; Visit Provider Podiatrist Foot & Ankle Surgery
DX: B35.1 Tinea unguium (principal)
CPT/HCPCS: 36415; 84450; 84460

== ENCOUNTER 2024-10-02 18:09 | Emergency (ER) | payer MEDICARE, SELFPAY ==
--- NOTE | ~2024-10-02 | XR_ITS ---
XR toe 5th RT min 2V Ordering provider: Talia Andrea APRN History: . pain, redness no known injury . Comparison: None. FINDINGS: BONES: No acute fracture or dislocation. JOINT SPACES: Normal. SOFT TISSUES: Normal. IMPRESSION: No acute osseous abnormality. Reviewed, dictated and finalized at location A. TER ELECTRONIC
[2024-10-02 18:22] VITALS: BP 165/94; PULSE 73; RESP 16; TEMP 36.2; O2SAT 100
--- NOTE | 2024-10-02 18:31 | ED.LOWEXIN ---
HPI - Extremity Injury (Lower) General Chief Complaint: Extremity Injury, Lower Stated Complaint: RT 5th toe injury(?) History of Present Illness HPI Narrative: 68-year-old male presents today with complaints of discoloration to the right 5th toe. Patient unsure if he ever injured his toe. He did start walking more lifting weights over the last couple weeks. Denies any fevers. Does endorse pain to the right 5th toe. Pain with movement. Patient denies any known CAD or PVD. History of prediabetes not diabetic. Related Data Home Medications ?Medication ?Instructions ?Recorded ?Confirmed ?Last Taken ?Type aspirin 81 mg tablet,delayed 81 mg PO DAILY 08/09/19 10/02/24 09/10/19 History release multivitamin 1 tablet PO DAILY 08/09/19 10/02/24 Unknown History coenzyme Q10 200 mg capsule 200 mg PO DAILY 10/17/21 10/02/24 Unknown History omega-3 fatty acids 1,000 mg 1,000 mg PO DAILY 10/17/21 10/02/24 Unknown History capsule (Fish Oil Concentrate) potassium gluconate 595 mg (99 mg) 595 mg PO DAILY 10/17/21 10/02/24 Unknown History tablet terbinafine HCl 250 mg tablet 250 mg PO 06/09/24 06/09/24 Unknown History zinc 50 mg tablet 50 mg PO DAILY 10/02/24 10/02/24 Unknown History Allergies Allergy/AdvReac Type Severity Reaction Status Date / Time No Known Allergies Allergy Verified 10/02/24 18:22 Review of Systems Review of Systems: All systems reviewed & are unremarkable except as noted in HPI and below Eyes: Eyes: Reports as per HPI ENT: Reports as per HPI Cardiovascular: Cardiovascular: Reports as per HPI Respiratory: Respiratory: Reports as per HPI Genitourinary: Genitourinary: Reports as per HPI Musculoskeletal: Musculoskeletal: Reports as per HPI Integumentary/Breasts: Skin/Breast: Reports as per HPI Neurologic: Reports as per HPI Psychiatric: Psychiatric: Reports as per HPI Endocrine: Endocrine: Reports as per HPI Hematologic/Lymphatic: Hematologic/Lymphatic: Reports as per HPI Allergic/Immunologic: Allergic/Immunologic: Reports as per HPI [facility] Past Medical History Medical History Bimalleolar fracture of right ankle 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 COVID-19 Degenerative tear of lateral meniscus Dislocation of ankle, right, open Dry eyes HLD (hyperlipidemia) HTN (hypertension) Right scapula fracture Surgical History Surgical History History of tonsillectomy Status post open reduction with internal fixation (ORIF) of fracture of ankle Family History Family History Father Basal cell carcinoma (BCC) in situ of skin Mother Cerebrovascular accident Diabetes mellitus Sibling Melanoma Social History Social History Smoking packs per day: 1 Smoking cigarettes per day: 20.0 Smoking status: Never smoker Tobacco type: cigarettes Smoking end date: 07/28/87 Additional smoking assessment comments: quit in 1983 Alcohol intake: current Drinks per week: 4 Substance use: never Lack of Transportation: No Lack of Food: Never True Current Housing: I Have Housing Concerned About Future Housing: No Difficulty Paying Gas/Electric Bills: No Difficulty Paying for Meds: No Currently Unemployed: No Education: Bachelor's Degree Difficulty w/ Childcare or Family Care: No Gender identity (if verbalized by the patient): Male Spiritual care concerns: No Agree to blood products: Yes Exam Const: General: cooperative, healthy appearing, comfortable, no acute distress and well developed Orientation/consciousness: patient oriented x3 HENMT: Head: normal to inspection Eyes: General: appearance normal, both eyes and all related structures Resp: Effort & Inspection: normal respiratory effort and able to speak in complete sentences Auscultation: clear to auscultation bilaterally Cardio: Rate: regular rate Rhythm: regular rhythm Heart sounds: S1 normal heart sound present and S2 normal heart sound present Skin: General skin exam: normal color Neuro: General: patient oriented x3 Cognition (Neuro): normal cognition Speech: normal speech Extrem: Other: Right 5th digit with purple discoloration noted. Decreased capillary refill at more than 3 seconds. Pain with palpation. No obvious deformity noted. Does not feel warm to touch but is in streak format. Psych: Mental Status: mental status grossly normal Course Course Level of Care: Express Care Visit Vital Signs Vital signs: Vital Signs Temperature 97.2 F L 10/02/24 18:22 Pulse Rate 73 10/02/24 18:22 Respiratory Rate 16 10/02/24 18:22 Blood Pressure 165/94 H 10/02/24 18:22 Pulse Oximetry 100 10/02/24 18:22 Temperature 97.2 F L 10/02/24 18:22 Pulse Rate 73 10/02/24 18:22 Respiratory Rate 16 10/02/24 18:22 Blood Pressure 165/94 H 10/02/24 18:22 Pulse Oximetry 100 10/02/24 18:22 MDM - Extremity Injury (Lower) MDM Narrative Medical decision making narrative: 68-year-old male HPI is noted differentials include But not limited to fracture, PAD, cellulitis. patient is unsure if he ever injured the toe will get an x-ray to assess. x-ray shows no fracture . Suspicions are for P 80 and cellulitis at this time. Will treat for cellulitis with Keflex to see if there is improvement. Did discuss symptoms of PAT with the patient and he is to follow up with primary care provider. Medical Records Attestation: I reviewed the patient's medical records. Imaging Data Attestation: I personally reviewed and interpreted this imaging study as follows: Radiologist's impression: Impressions Toe X-Ray 10/02/24 19:09 IMPRESSION: No acute osseous abnormality. Discharge Plan Discharge Clinical Impression: Cellulitis of fifth toe Patient Disposition: Home, Self-Care Condition: Stable Instructions: Antibiotic Form, Cellulitis (ED), Peripheral Artery Disease (ED) Additional Instructions: Exam today is consistent with possible peripheral arterial disease or decreased circulation to the extremity mainly at this time the right 5th digit. There is a possibility he could have some cellulitis intertwined with that too and we will treat with cephalexin 4 times a day for 7 days. Return with any concerning symptoms. Please follow-up with your primary care provider in 1-2 weeks. To ER with any emergent or urgent concerns As we discussed. Patient Language: Sami Prescriptions: New cephalexin 500 mg capsule 500 mg PO QID 7 Days Qty: 28 0RF No Action zinc 50 mg tablet 50 mg PO DAILY aspirin 81 mg tablet,delayed release (DR/EC) 81 mg PO DAILY multivitamin Tablet 1 tablet PO DAILY terbinafine HCl 250 mg tablet 250 mg PO bacitracin 500 unit/gram ointment 1 applic topical Q8H Qty: 1022.4 0RF cephalexin 500 mg capsule 500 mg PO Q6H Qty: 40 0RF potassium gluconate 595 mg (99 mg) tablet 595 mg PO DAILY coenzyme Q10 200 mg capsule 200 mg PO DAILY omega-3 fatty acids [Fish Oil Concentrate] 1,000 mg capsule 1,000 mg PO DAILY Rx Instructions: pt taking 3750 lisinopril 20 mg tablet 20 mg PO DAILY Qty: 90 1RF rosuvastatin [Crestor] 20 mg tablet 20 mg PO DAILY Qty: 90 1RF hydrochlorothiazide 12.5 mg tablet 12.5 mg PO DAILY Qty: 90 1RF Follow-up/Referrals: Jimi Blackman MD [Primary Care Provider] - 2 Weeks Time of Disposition: 19:22
== END 2024-10-02 19:26 | disposition home or self-care (01) ==
PROVIDERS: Emergency Provider Nurse Practitioner Family; PCP Family Medicine
DX: L03.031 Cellulitis of right toe (principal); Z87.891 Personal history of nicotine dependence; I10 Essential (primary) hypertension; E78.5 Hyperlipidemia, unspecified; R73.03 Prediabetes; Z86.16 Personal history of COVID-19; Z79.82 Long term (current) use of aspirin
CPT/HCPCS: 73660; 99213; G0463

== ENCOUNTER 2024-12-01 08:42 | Outpatient (CLI) | payer MEDICARE, SELFPAY ==
--- NOTE | ~2024-12-01 | US_ITS ---
EXAMINATION: US arterial ankle brachial ind DATE: 12/01/2024 09:27 INDICATION: Other specified symptoms and signs involving the circulatory system. Peripheral vascular disease risk factors of hypercholesterolemia, prior smoking and hypertension. Right foot numbness. TECHNIQUE: Segmental pressures and plethysmographic and Doppler waveforms of the brachial and lower e xtremity arteries were obtained. COMPARISON: None. FINDINGS: Right and left brachial artery pressures of 137 mm Hg and 133 mm Hg, respectively, are concordant (no rmal difference <= 30 mmHg). The right ankle-brachial index (EDDIE) is 1.16 (normal >= 0.9-1.0). The right great toe-brachial index (TBI) is 0.91 (normal >= 0.65). Arterial Doppler waveforms demonstrate brisk systolic upstrokes at tico th right posterior tibial and dorsalis pedis arteries. The left EDDIE is 1.23. The left TBI is 0.81. Arterial Doppler waveforms demonstrate brisk systolic ups trokes at both left posterior tibial and dorsalis pedis arteries. IMPRESSION: 1. No significant arterial occlusive disease to either lower limb with normal bilateral ABIs and TBI' s. Reviewed, dictated and finalized at location A. IMPRESSION: 1. No significant arterial occlusive disease to either lower limb with normal b ilateral ABIs and TBI's.
== END 2024-12-01 08:43 | disposition home or self-care (01) ==
PROVIDERS: PCP Family Medicine; Visit Provider Nurse Practitioner Family
DX: R09.89 Other specified symptoms and signs involving the circulatory and respiratory systems (principal); L81.9 Disorder of pigmentation, unspecified
CPT/HCPCS: 93922

== ENCOUNTER 2025-03-31 15:42 | Outpatient (CLI) | payer MEDICARE, SELFPAY ==
--- NOTE | 2025-03-31 15:53 | ECHO_ITS ---
Patient Info Name: Toro Vinson Age: 69 years : 1955 Gender: Male Ht: 80 in Wt: 300 lbs BSA: 2.80 m2 HR: 78 bpm BP: 153 / 91 mmHg Technical Quality: Good Exam Date: 03/31/2025 4:06 PM Patient Status: O Admit Date: 03/31/2025 Exam Type: CA echo doppler color flow Complete two-dimensional, color flow and Doppler transthoracic echocardiogram is performed. [employer] Instructor: Tory Diggs Attending Provider: Jimi Blackman MD Summary 1. Complete two-dimensional, color flow and Doppler transthoracic echocardiogram is performed. 2. Left ventricular chamber dimension is normal. 3. Left ventricular systolic function is normal, estimated at 60-65. 4. There is mild concentric increased left ventricular wall thickness. 5. The left ventricular diastolic function is normal. 6. E/e' 6 is not elevated. 7. There is mild tricuspid valve regurgitation. 8. No pulmonary hypertension, estimated pulmonary arterial systolic pressure is 36 mmHg. 9. There is trace pulmonic regurgitation. 10. The prox ascending aorta size is moderately dilated at 4.6 cm. 11. Normal inferior vena cava with >50% collapse upon inspiration consistent with normal right atrial pressure, 10 mmHg. Left Ventricle E/e' 6 is not elevated. Left ventricular chamber dimension is normal. Left ventricular systolic function is normal, estimated at 60-65. There is mild concentric increased left ventricular wall thickness. The left ventricular diastolic function is normal. Right Ventricle Right ventricular chamber dimension is normal. Right ventricular systolic function is normal and with normal TAPSE 1.9 cm. Left Atria Left atrial chamber dimension is normal. Right Atria Right atrial chamber dimension is normal. Aortic Valve The aortic valve is trileaflet. There is no aortic valve stenosis. There is no aortic valve regurgitation. Pulmonic Valve There is trace pulmonic regurgitation. Mitral Valve There is no mitral valve stenosis. There is no mitral valve regurgitation. Tricuspid Valve There is mild tricuspid valve regurgitation. No pulmonary hypertension, estimated pulmonary arterial systolic pressure is 36 mmHg. Pericardium/Pleural There is no pericardial effusion. Inferior Vena Cava Normal inferior vena cava with >50% collapse upon inspiration consistent with normal right atrial pressure, 10 mmHg. Aorta The aortic root size at the sinus of Valsalva is normal. The prox ascending aorta size is moderately dilated at 4.6 cm. Left Ventricular Outflow Tract Name Value Normal LVOT 2D LVOT Diameter 2.2 cm LVOT Doppler LVOT Peak Velocity 92 cm/s LVOT Peak Gradient 3 mmHg LVOT Mean Gradient 2 mmHg LVOT VTI 20 cm LVOT VTI/AV VTI Ratio 0.7 LVOT Stroke Volume 75 ml LVOT CO 15.8 l/min LVOT CI 5.7 l/min/m2 Pulmonic Valve Name Value Normal PV Doppler PV Peak Velocity 95 cm/s PV Peak Gradient 4 mmHg Mitral Valve Name Value Normal MV Diastolic Function MV E Peak Velocity 68 cm/s MV A Peak Velocity 52 cm/s MV E/A 1.3 MV Decel Time (PW) 230 ms MV Annular TDI MV E/e' (Septal) 7.5 MV E/e' (Lateral) 6.3 MV E/e' (Average) 6.9 Tricuspid Valve Name Value Normal TV Regurgitation Doppler TR Peak Velocity 254 cm/s TR Peak Gradient 26 mmHg Estimated PAP/RSVP RA Pressure 10 mmHg <=5 PA Systolic Pressure 36 mmHg <36 RV Systolic Pressure 36 mmHg <36 TV Annular TDI TV Lateral Symone s' Velocity 11.3 cm/s >=9.5 Aorta Name Value Normal Ascending Aorta Ao Root Diameter (MM) 3.9 cm Ao Root Diam Index (MM) 1.4 cm/m2 Aortic Valve Name Value Normal AV Doppler AV Peak Velocity 139 cm/s AV Peak Gradient 8 mmHg AV Mean Gradient 5 mmHg AV VTI 30 cm AV Area (Cont Eq VTI) 2.5 cm2 >=3.0 AV Area (Cont Eq Yovanny) 2.4 cm2 AV DI (Yovanny) 0.66 AV Regurgitation 2D LVOT Area 3.7 cm2 Ventricles Name Value Normal LV Dimensions 2D/MM IVS Diastolic Thickness (2D) 1.2 cm 0.6-1.0 LVID Diastole (2D) 4.3 cm 4.2-5.8 LVIW Diastolic Thickness (2D) 1.1 cm 0.6-1.0 LVID Systole (2D) 2.8 cm 2.5-4.0 LVOT Diameter 2.2 cm LV Mass (2D Cubed) 175.27 g 88.00-224.00 LV Mass Index (2D Cubed) 63 g/m2 49-115 Relative Wall Thickness (2D) 0.53 <=0.42 LV Fractional Shortening/Ejection Fraction 2D/MM LV Fractional Shortening (2D) 36 % 25-43 LV EF (2D Teichholz) 66 % LV Diastolic Volume (4C MOD) 176 ml LV EF (4C MOD) 72 % LV Diastolic Volume (2C MOD) 114 ml LV EF (2C MOD) 64 % LV Diastolic Volume (BP MOD) 142 ml 62-150 LV Diastolic Volume Index (BP MOD) 51 ml/m2 34-74 LV Systolic Volume (BP MOD) 45 ml 21-61 LV Systolic Volume Index (BP MOD) 16 ml/m2 11-31 LV EF (BP MOD) 68 % 52-72 LV Diastolic Length (4C) 8.6 cm LV Systolic Length (4C) 6.8 cm LV Stroke Volume (4C MOD) 127 ml RV Dimensions 2D/MM RVID Diastole (2D) 4.9 cm 2.1-3.5 Atria Name Value Normal LA Dimensions LA Volume (4C A-L) 56 ml LA Volume (BP A-L) 62 ml RA Dimensions RA Systolic Major Greer Length (4C) 5.7 cm 2.1-2.7 RA Area (4C) 18.6 cm2 <=18.0 Report Signatures
== END 2025-03-31 15:43 | disposition home or self-care (01) ==
PROVIDERS: PCP Family Medicine; Visit Provider Family Medicine
DX: R93.1 Abnormal findings on diagnostic imaging of heart and coronary circulation (principal); I35.8 Other nonrheumatic aortic valve disorders; I10 Essential (primary) hypertension; Z82.49 Family history of ischemic heart disease and other diseases of the circulatory system
CPT/HCPCS: 93306